=== PATIENT | male | born 1950 | race Caucasian/White ===

== ENCOUNTER 2019-07-03 12:32 | Inpatient (IN) | payer BC, OTHER ==
[2019-07-03] MEDS ORDERED: LACTATED RINGERS SOLUTION 1000 ML INFUS.BAG IV ONE (13:23)
--- NOTE | 2019-07-03 13:55 | EKG ---
Test Reason : Blood Pressure : / mmHG Vent. Rate : 066 BPM Atrial Rate : 066 BPM P-R Int : 162 ms QRS Dur : 098 ms QT Int : 418 ms P-R-T Axes : 033 -19 025 degrees QTc Int : 438 ms NORMAL SINUS RHYTHM MODERATE VOLTAGE CRITERIA FOR LVH, MAY BE NORMAL VARIANT BORDERLINE ECG WHEN COMPARED WITH ECG OF 10-JUL-2010 06:40, NO SIGNIFICANT CHANGE WAS FOUND Confirmed by ADELAIDA LAMAR MD ([id number]) on 07/03/2019 1:55:19 PM Referred By: Confirmed By:ADELAIDA LAMAR MD
--- NOTE | 2019-07-03 15:12 | PDOC ---
History of Present Illness - General Chief Complaint: Blood Pressure Problem Stated Complaint: HYPOTENSION Time Seen by Provider: 07/03/19 13:22 History Source: Patient, EMS, Spouse ( present at bedside.) Exam Limitations: No Limitations - History of Present Illness Initial Comments: HPI: 68 y/o male presenting to [facility] ER complaining of an episode of chills and diaphoresis. EMS reports finding the pt's systolic BP to be in the 60s with bradycardia on scene. Given 500c NS IVFB prior to arrival with marked improvement of BP. Pt reports he took a dose of Naproxen and felt "pinches" all over his skin. Denies observing skin changes. observed her pt was sweating and felt cold to the touch. No syncope or change in mental status. Denies chest pain, SOB, or recent illness. Pt has tolerated Naproxen in the past. No significant outdoor exposure. Has heat in the household. Only complaint at the time of interview is chronic bilateral lower back pain. Denies trauma or midline tenderness. Denies saddle anesthesia, urinary retention , fecal incontinence, numbness or tingling in legs, or difficulty walking. 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 Medical Hx: - HTN - BPH - S/p L inguinal hernia repair Review of Systems: In addition to that documented in the HPI above, the additional ROS was obtained : Constitutional- Denies fevers Head- Denies vision changes or headache ENMT- Denies sore throat CV- Denies chest pain or upper back pain Resp- Denies SOB, coughing, or sneezing GI- Denies abdominal pain, vomiting, or diarrhea - Denies painful urination, hematuria MSK- Denies recent trauma Skin- Denies new rashes Neuro- Denies new numbness or tingling or weakness Endocrine- Denies polyuria Heme- Denies bleeding or bruising Physical Examination: Vital signs and nursing notes reviewed. Constitutional- Well-developed, well-nourished adult male in no acute distress or obvious discomfort. Found semi-fowlers on hospital bed covered by multiple blankets. Answered all questions appropriately and completely. Head- Normocephalic. No obvious external signs of trauma. Eyes- Pupils 3mm and PERRL. EOMI. Sclerae white. Conjunctiva moist and not injected. Ears- Hearing grossly intact. Nose- No nasal discharge. Throat- Oral cavity and pharynx normal. No inflammation, swelling, exudate, or lesions. Moist mucosal membranes. Neck- Supple, trachea is midline. Cardiovascular / Chest- Regular rate and regular rhythm. No murmur, rubs, clicks , or gallops. Peripheral pulses- radial pulses full. Respiratory- Breathing unlabored. Equal chest rise and fall. Clear to auscultation bilaterally. No stridor, no wheezing, no rhonchi. Gastrointestinal- abdomen is soft, non-tender, non-distended. Midline epigastric hernia. Neuro- Alert and oriented x4. Moving all four extremities spontaneously. Sensation to all four extremities intact. Lower extremity: proximal and distal strength 5/5. Plantar flexion and dorsiflexion 5/5. No nuchal rigidity. MSK- diffuse bilateral lower extremity pain. No mid line tenderness. No overlying skin lesions. No obvious step off or other bony deformity. Skin- Warm, dry, and intact. No bruising, rashes, or other lesions. - No R or L CVA tenderness. Psych- Affect- appropriate. Mood- normal. Speech was non-labored, non- pressured. MDM: 68 y/o male presenting with episode of chills and diaphoresis with abnormal vital signs reported by EMS Afebrile. Vitals unremarkable for hypotension or tachycardia. Mildly hypothermic rectally. Physical exam as described above. Mild leukocytosis. No significant electrolyte derangement. EKG unremarkable for ischemic changes. Initial troponin not elevated. Unclear etiology of symptoms. No clear source of infection without symptoms, an unremarkable UA, and an unremarkable CXR. Concern for possible poorly described syncopal episode after repeat interview by ED Attending coupled with reportedly abnormal vitals pre-hospital. Given pt s age and h/o HTN, will admit the pt to telemetry for TIMA. 03 Jul 2019 16:09 PM Page sent for Dr. Walker through office answering service. Awaiting call back. 03 Jul 2019 16:27 PM Telephone discussion with Dr. Walker. Verbally appraised of the pts HPI, ED course, and current plan of management. No additional orders requested. Will admit the pt to telemetry on obs status. Repeat troponin pending at time of admission. Shane Jordan M.D., PGY2 Emergency Medicine Resident Past History - Past Medical History Allergies/Adverse Reactions: Allergies Allergy/AdvReac Type Severity Reaction Status Date / Time acetaminophen [From Percocet] Allergy Verified 07/03/19 12:53 aspirin Allergy Verified 07/03/19 12:53 codeine Allergy Verified 07/03/19 12:53 oxycodone HCl [From Percocet] Allergy Verified 07/03/19 12:53 Home Medications: Ambulatory Orders Tamsulosin HCl [Flomax] 0.4 mg PO DAILY 01/06/16 Losartan Potassium 25 mg PO DAILY 07/03/19 Naproxen 500 mg PO DAILY PRN 07/03/19 COPD: No HTN: Yes Other medical history: chronic back pain - Surgical History Abdominal Surgery: Yes (hernia) - Psycho Social/Smoking Cessation Hx Smoking History: Never smoked Hx Alcohol Use: Yes Drug/Substance Use Hx: No *Physical Exam - Vital Signs Last Vital Signs Temp Pulse Resp BP Pulse Ox 96.3 F L 59 L 20 144/95 100 07/03/19 13:45 07/03/19 13:45 07/03/19 13:45 07/03/19 13:45 07/03/19 13:45 ED Treatment Course - LABORATORY CBC & Chemistry Diagram: 07/03/19 14:36 07/03/19 14:36 - RADIOLOGY Radiology Studies Ordered: Category Date Time Status CHEST X-RAY PORTABLE* [RAD] Stat Radiology 07/03/19 13:23 Completed Discharge - Discharge Information Problems reviewed: Yes Clinical Impression/Diagnosis: Pre-syncope Hypotension, unspecified Qualifiers: Hypotension type: unspecified hypotension type Qualified Code(s): I95.9 - Hypotension, unspecified Leukocytosis Qualifiers: Leukocytosis type: other Qualified Code(s): D72.828 - Other elevated white blood cell count Hypothermia Qualifiers: Encounter type: initial encounter Qualified Code(s): T68.XXXA - Hypothermia, initial encounter Condition: Stable - Admission Yes - Follow up/Referral Referrals: Lev Ohara MD [Primary Care Provider] - - Patient Discharge Instructions - Post Discharge Activity
[2019-07-03 15:13] LABS: BASO % 0.2 % (0-2.0); EOS % 0.5 % (0-4.5); HEMATOCRIT 48.2 % (35.4-49); HEMOGLOBIN 16.2 GM/dL (11.7-16.9); LYMPH % 9.3 % (8-40); MCH 30.3 pg (25.7-33.7); MCHC 33.6 g/dl (32.0-35.9); MEAN CELL VOLUME 90.3 fl (80-96); MEAN PLT VOLUME 11.1 fl (7.5-11.1); MONO % 7.7 % (3.8-10.2); NEUT % 82.3 % (42.8-82.8); PLATELET COUNT 156 K/MM3 (134-434); RBC 5.34 M/mm3 (4.00-5.60); RDW 13.8 % (11.9-15.9); WHITE BLOOD COUNT 14.2 K/mm3 (4.0-10.0)
[2019-07-03 15:19] LABS: EPI CELLS 1.1 /HPF (0-5/HPF); HYALINE CASTS 4 /lpf (0-8); PH,URINE 7.5 (5.0-8.0); URINE APPEARANCE CLEAR; URINE BACTERIA 0.7 /hpf (NEGATIVE); URINE BILIRUBIN NEGATIVE (NEGATIVE); URINE COLOR YELLOW; URINE GLUCOSE (UA) NEGATIVE (NEGATIVE); URINE KETONE NEGATIVE (NEGATIVE); URINE LEUK ESTERASE NEGATIVE (NEGATIVE); URINE NITRITE NEGATIVE (NEGATIVE); URINE PROTEIN 1+ (NEGATIVE); URINE RBC 5 /hpf (0-4); URINE WBC 1 /hpf (0-5)
[2019-07-03 15:26] LABS: INR 0.92 (0.83-1.09); PROTHROMBIN TIME (PATIENT) 10.8 SEC (9.7-13.0)
[2019-07-03 15:29] LABS: ACTIVATED PTT 17.8 SECONDS (25.2-36.5)
[2019-07-03 15:43] LABS: ALBUMIN 4.4 g/dl (3.4-5.0); BILIRUBIN,TOTAL 0.8 mg/dL (0.2-1); BLOOD UREA NITROGEN 16.4 mg/dL (7-18); POTASSIUM 4.1 mmol/L (3.5-5.1); TOT PROT 7.1 g/dl (6.4-8.2)
--- NOTE | 2019-07-03 16:29 | PDOC ---
Documentation entered by Macarena Tello SCRIBE, acting as scribe for Cristino Greenberg MD. Cristino Greenberg MD: This documentation has been prepared by the Omer chase Adrianna, SCRIBE, under my direction and personally reviewed by me in its entirety. I confirm that the documentation accurately reflects all work, treatment, procedures, and medical decision making performed by me. Attending Attestation - Resident Resident Name: Shane Jordan - ED Attending Attestation I have performed the following: I have examined & evaluated the patient, The case was reviewed & discussed with the resident, I agree w/resident's findings & plan, Exceptions are as noted - HPI HPI: The patient is a 68 year old male, with a significant PMH of HTN, BPH, and chronic low back pain (on Naproxen prn), who presents to the ED BIBEMS for evaluation of syncopal episode. at bedside assists in providing history. She notes the patient took naproxen earlier today for his chronic low back pain (has been taking for the past week without any complaints), and shortly after he developed a diffuse "itching" sensation (as if he had a rash, but without any visible signs). Patient went to lie down on the couch, and notes he suddenly passed out and began snoring. Upon evaluation, patient was weak, sweaty , and cool to touch. notes the episode lasted for a few minutes. She called EMS, and upon arrival he was found to be hypotensive (~60s systolic) and bradycardic (in the 50s). He was given 500cc saline, and his BP returned to normal (~140s systolic in the ED). His only complaint in the ED is his baseline bilateral low back pain, and he is hypothermic upon evaluation (~96F). Patient endorses one episode of similar symptoms ~7 years ago after taking codeine, but did not seek medical attention at that time. Denies headache, dizziness, focal weakness/numbness, fever, chills, chest pain, SOB, palpitations, abdominal pain, nausea, vomit, diarrhea, constipation, dysuria, hematuria. Allergies: acetaminophen, aspirin, codeine, oxycodone Surgical History: Abdominal hernia repair Social History: Denies EtOH, tobacco, or illicit drug use PCP: Dr. Ohara - Physicial Exam PE: GENERAL: +Hypothermic. Awake, alert, and fully oriented, in no acute distress HEAD: No signs of trauma EYES: PERRLA, EOMI, sclera anicteric, conjunctiva clear ENT: Oropharynx clear without exudates. Moist mucosa NECK: Normal ROM, supple, no lymphadenopathy, JVD, or masses LUNGS: Breath sounds equal, clear to auscultation bilaterally. No wheezes, and no crackles HEART: Regular rate and rhythm, normal S1 and S2, no murmurs, rubs or gallops ABDOMEN: Soft, nontender, normoactive bowel sounds. No guarding, no rebound. No masses EXTREMITIES: Normal range of motion, no edema. No clubbing or cyanosis. No cords , erythema, or tenderness. 2+ DP and TP pulses in LE. BACK: +Bilateral paraspinal low back tenderness to palpation. No midline spinal tenderness in cervical/thoracic/lumbar region NEUROLOGICAL: Normal speech, cranial nerves intact, negative pronator drift, 5/ 5 strength in all 4 extremities, normal sensation to light touch in all 4 extremities, normal cerebellar exam, normal gait SKIN: Warm, Dry, normal turgor, no rashes or lesions noted. - Medical Decision Making 07/03/19 15:00 68-year-old male presents the emergency department with a syncopal episode, found to be hypothermic. Patient was also hypotensive in the field to 60s systolic and bradycardic to the 50s per EMS. Suspect syncope, possibly vasovagal versus sepsis although he has no infectious sxs. Sepsis work-up initiated, thus far unremarkable. Patient currently asymptomatic. Likely syncopal episode. Plan at this point for telemetry observation admission for cardiac monitoring. 07/03/19 16:[address] Walker, patient accepted for admission. Case discussed in detail with admitting physician including history, physical exam and ancillary studies. Admitting physician has assumed care for the patient, will follow all pending diagnostics and will complete the evaluation and treatment. Heart Score/ECG Review #1 07/03/19 16:28 Twelve-lead EKG was performed and reviewed by me. Normal sinus rhythm, rate 66. Normal axis and intervals. No ST elevations or T wave inversions. ED Treatment Course - LABORATORY CBC & Chemistry Diagram: 07/03/19 14:36 07/03/19 14:36 - ADDITIONAL ORDERS Additional order review: Laboratory Results 07/03/19 07/03/19 07/03/19 14:53 14:36 14:36 PT with INR INR PTT (Actin FS) VBG pH Cancelled POC VBG pCO2 Cancelled POC VBG pO2 Cancelled VBG HCO3 Cancelled VBG O2 Sat (Anibal) Cancelled VBG Base Excess Cancelled Sodium 139 Potassium 4.1 Chloride 106 Carbon Dioxide 27 Anion Gap 6 L BUN 16.4 Creatinine 1.0 Est GFR (CKD-EPI)AfAm 89.86 Est GFR (CKD-EPI)NonAf 77.54 Random Glucose 114 H Calcium 9.0 Total Bilirubin 0.8 AST 24 ALT 29 Alkaline Phosphatase 68 Troponin I Total Protein 7.1 Albumin 4.4 Urine Color Yellow Urine Appearance Clear Urine pH 7.5 Ur Specific [place] 1.017 Urine Protein 1+ H Urine Glucose (UA) Negative Urine Ketones Negative Urine Blood Negative Urine Nitrite Negative Urine Bilirubin Negative Urine Urobilinogen 1.0 Ur Leukocyte Esterase Negative Urine WBC (Auto) 1 Urine RBC (Auto) 5 Urine Casts (Auto) 4 U Epithel Cells (Auto) 1.1 Urine Bacteria (Auto) 0.7 07/03/19 07/03/19 14:36 14:36 PT with INR 10.80 INR 0.92 PTT (Actin FS) 17.8 L VBG pH POC VBG pCO2 POC VBG pO2 VBG HCO3 VBG O2 Sat (Anibal) VBG Base Excess Sodium Potassium Chloride Carbon Dioxide Anion Gap BUN Creatinine Est GFR (CKD-EPI)AfAm Est GFR (CKD-EPI)NonAf Random Glucose Calcium Total Bilirubin AST ALT Alkaline Phosphatase Troponin I < 0.02 Total Protein Albumin Urine Color Urine Appearance Urine pH Ur Specific [place] Urine Protein Urine Glucose (UA) Urine Ketones Urine Blood Urine Nitrite Urine Bilirubin Urine Urobilinogen Ur Leukocyte Esterase Urine WBC (Auto) Urine RBC (Auto) Urine Casts (Auto) U Epithel Cells (Auto) Urine Bacteria (Auto) 07/03/19 14:36 RBC 5.34 MCV 90.3 MCHC 33.6 RDW 13.8 MPV 11.1 Neutrophils % 82.3 Lymphocytes % 9.3 Monocytes % 7.7 Eosinophils % 0.5 Basophils % 0.2 - RADIOLOGY Radiograph Interpretation: EXAM#: TYPE/EXAM: RESULT: [id number] RAD/CHEST X-RAY PORTABLE* Chest: Sepsis Impression: No acute pathology. No significant change since 07/10/2010. Reported By: Tapan Garza MD 07/03/19 14:33 - Medications Given in the ED: ED Medications Discontinued Medications Generic Name Dose Route Start Last Admin Trade Name Freq PRN Reason Stop Dose Admin Lactated Ringer's 1,000 ml 07/03/19 13:23 07/03/19 15:08 Lactated Ringers Solution IV 07/03/19 13:24 1,000 ml ONCE ONE Administration
[2019-07-03 21:31] VITALS: BMI 28.8
[2019-07-04 07:00] LABS: BASO % 0.3 % (0-2.0); EOS % 1.5 % (0-4.5); HEMATOCRIT 41.4 % (35.4-49); HEMOGLOBIN 14.4 GM/dL (11.7-16.9); LYMPH % 13.1 % (8-40); MCH 30.8 pg (25.7-33.7); MCHC 34.8 g/dl (32.0-35.9); MEAN CELL VOLUME 88.5 fl (80-96); MEAN PLT VOLUME 10.6 fl (7.5-11.1); MONO % 6.4 % (3.8-10.2); NEUT % 78.7 % (42.8-82.8); PLATELET COUNT 150 K/MM3 (134-434); RBC 4.68 M/mm3 (4.00-5.60); RDW 13.9 % (11.9-15.9); WHITE BLOOD COUNT 10.3 K/mm3 (4.0-10.0)
[2019-07-04 07:46] LABS: ALBUMIN 3.6 g/dl (3.4-5.0); ALK PHOS 56 U/L (45-117); ANION GAP 5 MMOL/L (8-16); BILIRUBIN,TOTAL 1.2 mg/dL (0.2-1); BLOOD UREA NITROGEN 14.6 mg/dL (7-18); CALCIUM 8.9 mg/dL (8.5-10.1); CHLORIDE 108 mmol/L (98-107); CO2 27 mmol/L (21-32); CREATININE 0.9 mg/dL (0.55-1.3); GLUCOSE,RANDOM 88 mg/dL (74-106); POTASSIUM 3.9 mmol/L (3.5-5.1); SGOT/AST 18 U/L (15-37); SGPT/ALT 23 U/L (13-61); SODIUM 141 mmol/L (136-145); TOT PROT 6.1 g/dl (6.4-8.2)
--- NOTE | 2019-07-04 09:09 | CON.CARD ---
Consult Consult Specialty:: cardio - History of Present Illness Chief Complaint: syncope History of Present Illness: 68 year old male here with loss of consciousness. witnessed events, provided account to ER: patient took naproxen earlier for his chronic low back pain (has been taking for the past week without any complaints), and shortly after he developed a diffuse "itching" sensation (as if he had a rash, but without any visible signs) . he lay on the couch, and notes he suddenly passed out and began snoring. he was noted to be weak, sweaty, and cool to touch, persisting for a few minutes in 's estimation. EMS called: upon arrival, pt reportedly hypotensive (~60s systolic) and bradycardic (in the 50s). He was given 500cc saline, and his BP returned to normal (~140s systolic in the ED). Patient endorses one episode of similar symptoms ~7 years ago after taking codeine, but did not seek medical attention at that time. history provided to me today by pt (in [place]): felt his usual back pain yest am not particularly severe. ate breakfast (normal amt) and coffee at 11:30 am and took his usual NSAID. shortly thereafter the above sx's began. he admits to intense heat/flushing sensation in body as well, and beginning of dizzy/lightheaded sx just prior to loss of consciousness. denies palp, cp BP elevated, sats normal, no signif bradycardia. mild leukocytosis. bun/creat normal, lytes fine. lactate normal. trop neg x 3. TSH normal PMH: HTN, BPH, and chronic low back pain (on Naproxen prn) - Alcohol/Substance Use Hx Alcohol Use: Yes - Smoking History Smoking history: Never smoked Home Medications - Allergies Allergies/Adverse Reactions: Allergies Allergy/AdvReac Type Severity Reaction Status Date / Time acetaminophen [From Percocet] Allergy Verified 07/03/19 12:53 aspirin Allergy Verified 07/03/19 12:53 codeine Allergy Verified 07/03/19 12:53 ibuprofen [From Advil] Allergy Verified 07/03/19 21:32 oxycodone HCl [From Percocet] Allergy Verified 07/03/19 12:53 - Home Medications Home Medications: Ambulatory Orders Tamsulosin HCl [Flomax] 0.4 mg PO DAILY 01/06/16 Losartan Potassium 25 mg PO DAILY 07/03/19 Naproxen 500 mg PO DAILY PRN 07/03/19 Family Medical History Family History: Denies (no known cmp) Review of Systems - Review of Systems Constitutional: denies: Chills, Fever Eyes: denies: Eye Pain HENT: denies: Nasal Congestion Neck: denies: Stiffness Cardiovascular: denies: Palpitations Respiratory: denies: Orthopnea, PND Gastrointestinal: denies: Diarrhea, Rectal Bleeding Genitourinary: denies: Burning, Hematuria Musculoskeletal: denies: Muscle Pain Integumentary: denies: Rash Neurological: denies: Numbness, Seizure Endocrine: denies: Excessive Sweating Hematology/Lymphatic: denies: Excessive Bleeding Vital Signs: Vital Signs Temperature 97.7 F 07/04/19 06:00 Pulse Rate 73 07/04/19 06:00 Respiratory Rate 18 07/04/19 06:00 Blood Pressure 155/94 07/04/19 06:00 O2 Sat by Pulse Oximetry (%) 98 07/03/19 21:00 Constitutional: Yes: Well Nourished, No Distress Eyes: No: Sclera Icterus HENT: No: Nasal Congestion Neck: No: Decreased ROM Respiratory: Yes: CTA Bilaterally. No: Accessory Muscle Use, Rales, Wheezes Gastrointestinal: Yes: Normal Bowel Sounds. No: Distention, Hepatomegaly, Palpable Mass, Tenderness Cardiovascular: Yes: Regular Rate and Rhythm JVD: No Carotid Bruit: No PMI: Non-Displaced Heart Sounds: Yes: S1, S2. No: Gallop Murmur: No: Systolic Murmur, Diastolic Murmur Musculoskeletal: Yes: Other (No kyphosis) Extremities: No: Cool, Cyanosis Edema: No Peripheral Pulses: 2+ Left Carotid, 2+ Right Carotid, 2+ Left Doralis Pedis, 2+ Right Dorsalis Pedis Integumentary: No: Jaundice Neurological: Yes: Alert, Oriented (x3) Psychiatric: No: Agitated - Other Data Labs, Other Data: CBC, BMP 07/04/19 05:55 07/04/19 05:55 INR, PTT INR 0.92 (0.83-1.09) 07/03/19 14:36 Troponin, BNP 07/03/19 07/03/19 07/03/19 14:36 17:35 22:53 Troponin I < 0.02 < 0.02 < 0.02 Troponin, BNP 07/03/19 07/03/19 07/03/19 14:36 17:35 22:53 Troponin I < 0.02 < 0.02 < 0.02 Assessment/Plan CXR: clear lungs/pleura, no change vs prior study ECG: NSR, normal axis/intervals. ? LVH. no path q's, no ST-T ab tele: SR syncope: -hypotension >> bradycardia (reportedly HR 50s) at time of EMS evaluation. hypothermic in ER without s/sx of infection thus far (cultures pending) -occurred shortly after taking NSAID which he has tolerated for long time, associated with intense pruritic feeling (no rash)--? red reddy. allergy seems less likely, will defer allergic w/u to PMD -? vasovagal episode triggered by post-prandial state (prodromal sx of heat/ flushing is c/w this) -r/o arrhythmia--tele monitoring while here (thus far benign) would rec prolonged holter as outpt if findings unremarkable here -echo for risk stratification -no signs myocardial ischemia HTN: -hypertensive here, will resume home regimen and observe
[2019-07-04] MEDS: TAMSULOSIN HCL 0.4 MG CAP PO SCH (09:11)
[2019-07-04] MEDS: HEPARIN NA (PORCINE) 5,000 UNITS/ML 1ML VIAL SQ SCH ×2 (09:11→22:00)
[2019-07-04] MEDS ORDERED: LOSARTAN POTASSIUM 25 MG TABLET PO SCH (10:00)
--- NOTE | 2019-07-04 12:56 | HP ---
Admitting History and Physical - Admission History of Present Illness: Pt is a 68 y/o male w/ PMH significant for HTN, BOH and chronic lower back pain. Pt was brought to the ER by EMS who found pt to be hypotensive(SBP 60's), bradycardiac and hypothermic. As per pt's patient took naproxen earlier for his chronic low back pain (has been taking for the past week without any complaints), and shortly after he developed a diffuse "itching" sensation (as if he had a rash, but without any visible signs). He than layed on the couch, and notes he suddenly passed out and began snoring and he was noted to be weak, sweaty, and cool to touch, persisting for a few minutes in 's estimation. - Past Medical History Cardiovascular: Yes: HTN Renal/: Yes: BPH - Smoking History Smoking history: Never smoked - Alcohol/Substance Use Hx Alcohol Use: Yes Home Medications - Allergies Allergies/Adverse Reactions: Allergies Allergy/AdvReac Type Severity Reaction Status Date / Time acetaminophen [From Percocet] Allergy Verified 07/03/19 12:53 aspirin Allergy Verified 07/03/19 12:53 codeine Allergy Verified 07/03/19 12:53 ibuprofen [From Advil] Allergy Verified 07/03/19 21:32 oxycodone HCl [From Percocet] Allergy Verified 07/03/19 12:53 - Home Medications Home Medications: Ambulatory Orders Tamsulosin HCl [Flomax] 0.4 mg PO DAILY 01/06/16 Losartan Potassium 25 mg PO DAILY 07/03/19 Naproxen 500 mg PO DAILY PRN 07/03/19 Family Medical History Family History: Unremarkable Review of Systems - Review of Systems Constitutional: reports: Diaphoresis, Weakness Eyes: reports: No Symptoms HENT: reports: No Symptoms Neck: reports: No Symptoms Respiratory: reports: No Symptoms Gastrointestinal: reports: No Symptoms Genitourinary: reports: No Symptoms Physical Examination Vital Signs: Vital Signs Temperature 98.2 F 07/04/19 09:13 Pulse Rate 89 07/04/19 09:13 Respiratory Rate 18 07/04/19 09:13 Blood Pressure 162/96 07/04/19 09:13 O2 Sat by Pulse Oximetry (%) 99 07/04/19 09:00 Constitutional: Yes: No Distress Eyes: Yes: WNL HENT: Yes: WNL Neck: Yes: WNL, Supple Cardiovascular: Yes: WNL, Regular Rate and Rhythm Respiratory: Yes: WNL, Regular, CTA Bilaterally Gastrointestinal: Yes: WNL, Normal Bowel Sounds, Soft Musculoskeletal: Yes: WNL Extremities: Yes: WNL Edema: No Neurological: Yes: WNL, Alert ...Motor Strength: WNL Labs: CBC, BMP 07/04/19 05:55 07/04/19 05:55 Problem List - Problems (1) Pre-syncope Assessment/Plan: Serial cpk/troponin have been negative Cardio consult noted Check echo Probable dc planning if echo negative Holter monitor as outpt Code(s): R55 - SYNCOPE AND COLLAPSE (2) HTN (hypertension) Assessment/Plan: Cont losartan Code(s): I10 - ESSENTIAL (PRIMARY) HYPERTENSION (3) Leukocytosis Assessment/Plan: WBC now normal Pt has been off antibxs Cont to monitor BC/urine culture remain negative Code(s): D72.829 - ELEVATED WHITE BLOOD CELL COUNT, UNSPECIFIED Qualifiers: Leukocytosis type: other Qualified Code(s): D72.828 - Other elevated white blood cell count (4) Hypotension, unspecified Assessment/Plan: Resolved Code(s): I95.9 - HYPOTENSION, UNSPECIFIED Qualifiers: Hypotension type: unspecified hypotension type Qualified Code(s): I95.9 - Hypotension, unspecified (5) Hypothermia Assessment/Plan: Resolved Code(s): T68.XXXA - HYPOTHERMIA, INITIAL ENCOUNTER Qualifiers: Encounter type: initial encounter Qualified Code(s): T68.XXXA - Hypothermia , initial encounter
--- NOTE | 2019-07-04 15:08 | CON.ID ---
Consult - History of Present Illness History of Present Illness: 68 y.o. male with PMH of HTN, BPH, and chronic LBP (states he had a horse- riding accident 10 yrs ago) was brought in by EMS after his reported brief episode of ? LOC. Had stated that patient had recently re-started Naprosyn for his back pain and prior to arrival c/o generalized "pinching" sensation followed by diaphoresis, chills and feeling clammy prior to syncopal episode. No rash was noted. Pt states been tolerating Naprosyn prior to this. His called EMS and pt was reported to be found hypotensive, hypothermic, and bradycardic which resolved after IV fluids. In the ER he was noted to have an elevated wbc (14K) and given antibiotics for possible infectious etiology. Currently pt is alert, denies itching and has no c/o back pain, able to ambulate without difficulty. He denies any recent H/A, SOB/cough, CP, abd pain/n /v/d, urinary f/u/d. States he feels well. is at bedside. - History Source History Provided By: Patient, Medical Record Limitations to Obtaining History: No Limitations - Past Medical History Cardio/Vascular: Yes: HTN Renal/: Yes: BPH Musculoskeletal: Yes: Chronic low back pain - Alcohol/Substance Use Hx Alcohol Use: Yes - Smoking History Smoking history: Never smoked - Social History History of Recent Travel: No Home Medications - Allergies Allergies/Adverse Reactions: Allergies Allergy/AdvReac Type Severity Reaction Status Date / Time acetaminophen [From Percocet] Allergy Verified 07/03/19 12:53 aspirin Allergy Verified 07/03/19 12:53 codeine Allergy Verified 07/03/19 12:53 ibuprofen [From Advil] Allergy Verified 07/03/19 21:32 oxycodone HCl [From Percocet] Allergy Verified 07/03/19 12:53 - Home Medications Home Medications: Ambulatory Orders Tamsulosin HCl [Flomax] 0.4 mg PO DAILY 01/06/16 Losartan Potassium 25 mg PO DAILY 07/03/19 Naproxen 500 mg PO DAILY PRN 07/03/19 Review of Systems - Review of Systems Constitutional: reports: No Symptoms. denies: Chills, Diaphoresis, Fever, Lethargy, Loss of Appetite, Malaise, Night Sweats, Unintentional Wgt. Loss, Weakness, Other Eyes: reports: No Symptoms. denies: Blind Spots, Blurred Vision, Double Vision , Eye Pain, Floaters, Photophobia, Recent Change in Vision, Other HENT: reports: Other (mild rhinorrhea) Neck: reports: No Symptoms. denies: Decreased ROM, Lumps, Pain on Movement, Stiffness, Swollen Glands, Tenderness, Other Cardiovascular: reports: No Symptoms. denies: Chest Pain, Edema, Palpitations, Shortness of Breath, Other Respiratory: reports: No Symptoms. denies: Cough, Exercise Intolerance, Hemoptysis, Orthopnea, PND, Snoring, SOB, SOB on Exertion, Wheezing, Other Gastrointestinal: reports: No Symptoms. denies: Abdominal Pain, Bloating, Constipation, Diarrhea, Dysphagia, Indigestion, Melena, Nausea, Rectal Bleeding , Vomiting, Vomiting Blood, Other Genitourinary: reports: No Symptoms. denies: Burning, Discharge, Dysuria, Flank Pain, Frequency, Hematuria, Incontinence, Lesions, Menses, Pain, Testicular Mass, Testicular Pain, Testicular Swelling, Urgency, Vaginal Bleeding , Other Musculoskeletal: reports: No Symptoms. denies: Back Pain, Crepitus, Decreased ROM, Extremity Pain, Joint Pain, Joint Swelling, Muscle Pain, Muscle Cramps, Muscle Weakness, Other Integumentary: reports: No Symptoms. denies: Blister, Bruising, Change in Color , Eczema, Erythema, Incision, Lesions, Lump, Pallor, Pruritis, Rash, Wound, Other Neurological: reports: No Symptoms. denies: Change in LOC, Change in Speech, Confusion, Dizziness, Headache, Incoordination, Numbness, Parasthesia, Pre- Existing Deficit, Seizure, Syncope, Tremors, Unsteady Gait, Weakness, Other Endocrine: reports: No Symptoms. denies: Excessive Sweating, Flushing, Increased Hunger, Increased Thirst, Intolerance to Cold, Intolerance to Heat, Unexplained Weight Gain, Unexplained Weight Loss, Other Hematology/Lymphatic: reports: No Symptoms. denies: Easily Bruised, Excessive Bleeding, Swollen Glands, Other Psychiatric: reports: No Symptoms. denies: Altered Sleep Pattern, Anxiety, Depression, Hallucinations, Panic, Paranoia, Suicidal, Other Physical Exam Vital Signs: Vital Signs Temperature 98.2 F 07/04/19 09:13 Pulse Rate 89 07/04/19 09:13 Respiratory Rate 18 07/04/19 09:13 Blood Pressure 162/96 07/04/19 09:13 O2 Sat by Pulse Oximetry (%) 99 07/04/19 09:00 Constitutional: Yes: Well Nourished, No Distress, Calm Eyes: Yes: Conjunctiva Clear, EOM Intact HENT: Yes: Atraumatic Neck: Yes: Supple Cardiovascular: Yes: Regular Rate and Rhythm Respiratory: Yes: CTA Bilaterally Gastrointestinal: Yes: Normal Bowel Sounds, Soft Renal/: Yes: WNL Musculoskeletal: Yes: WNL Extremities: Yes: WNL Edema: No Peripheral Pulses WNL: Yes Integumentary: Yes: WNL Neurological: Yes: Alert, Oriented Labs: CBC, BMP 07/04/19 05:55 07/04/19 05:55 Laboratory Tests 07/03/19 07/03/19 07/03/19 14:36 14:36 14:36 WBC 14.2 H RBC 5.34 Hgb 16.2 Hct 48.2 MCV 90.3 MCH 30.3 MCHC 33.6 RDW 13.8 Plt Count 156 MPV 11.1 Absolute Neuts (auto) 11.7 H Neutrophils % 82.3 Lymphocytes % 9.3 Monocytes % 7.7 Eosinophils % 0.5 Basophils % 0.2 Nucleated RBC % 0 PT with INR 10.80 INR 0.92 PTT (Actin FS) 17.8 L VBG pH POC VBG pCO2 POC VBG pO2 VBG HCO3 VBG O2 Sat (Anibal) VBG Base Excess Sodium Potassium Chloride Carbon Dioxide Anion Gap BUN Creatinine Est GFR (CKD-EPI)AfAm Est GFR (CKD-EPI)NonAf Random Glucose Lactic Acid Calcium Total Bilirubin AST ALT Alkaline Phosphatase Creatine Kinase Creatine Kinase Index CK-MB (CK-2) Troponin I < 0.02 Total Protein Albumin TSH Urine Color Urine Appearance Urine pH Ur Specific [place] Urine Protein Urine Glucose (UA) Urine Ketones Urine Blood Urine Nitrite Urine Bilirubin Urine Urobilinogen Ur Leukocyte Esterase Urine WBC (Auto) Urine RBC (Auto) Urine Casts (Auto) U Epithel Cells (Auto) Urine Bacteria (Auto) 07/03/19 07/03/19 07/03/19 14:36 14:36 14:39 WBC RBC Hgb Hct MCV MCH MCHC RDW Plt Count MPV Absolute Neuts (auto) Neutrophils % Lymphocytes % Monocytes % Eosinophils % Basophils % Nucleated RBC % PT with INR INR PTT (Actin FS) VBG pH Cancelled POC VBG pCO2 Cancelled POC VBG pO2 Cancelled VBG HCO3 Cancelled VBG O2 Sat (Anibal) Cancelled VBG Base Excess Cancelled Sodium 139 Potassium 4.1 Chloride 106 Carbon Dioxide 27 Anion Gap 6 L BUN 16.4 Creatinine 1.0 Est GFR (CKD-EPI)AfAm 89.86 Est GFR (CKD-EPI)NonAf 77.54 Random Glucose 114 H Lactic Acid Cancelled Calcium 9.0 Total Bilirubin 0.8 AST 24 ALT 29 Alkaline Phosphatase 68 Creatine Kinase Creatine Kinase Index CK-MB (CK-2) Troponin I Total Protein 7.1 Albumin 4.4 TSH Urine Color Urine Appearance Urine pH Ur Specific [place] Urine Protein Urine Glucose (UA) Urine Ketones Urine Blood Urine Nitrite Urine Bilirubin Urine Urobilinogen Ur Leukocyte Esterase Urine WBC (Auto) Urine RBC (Auto) Urine Casts (Auto) U Epithel Cells (Auto) Urine Bacteria (Auto) 07/03/19 07/03/19 07/03/19 14:53 17:35 17:35 WBC RBC Hgb Hct MCV MCH MCHC RDW Plt Count MPV Absolute Neuts (auto) Neutrophils % Lymphocytes % Monocytes % Eosinophils % Basophils % Nucleated RBC % PT with INR INR PTT (Actin FS) VBG pH POC VBG pCO2 POC VBG pO2 VBG HCO3 VBG O2 Sat (Anibal) VBG Base Excess Sodium Potassium Chloride Carbon Dioxide Anion Gap BUN Creatinine Est GFR (CKD-EPI)AfAm Est GFR (CKD-EPI)NonAf Random Glucose Lactic Acid 1.5 Calcium Total Bilirubin AST ALT Alkaline Phosphatase Creatine Kinase Creatine Kinase Index CK-MB (CK-2) Troponin I < 0.02 Total Protein Albumin TSH Urine Color Yellow Urine Appearance Clear Urine pH 7.5 Ur Specific [place] 1.017 Urine Protein 1+ H Urine Glucose (UA) Negative Urine Ketones Negative Urine Blood Negative Urine Nitrite Negative Urine Bilirubin Negative Urine Urobilinogen 1.0 Ur Leukocyte Esterase Negative Urine WBC (Auto) 1 Urine RBC (Auto) 5 Urine Casts (Auto) 4 U Epithel Cells (Auto) 1.1 Urine Bacteria (Auto) 0.7 07/03/19 07/04/19 07/04/19 22:53 05:55 05:55 WBC 10.3 H RBC 4.68 Hgb 14.4 Hct 41.4 MCV 88.5 MCH 30.8 MCHC 34.8 RDW 13.9 Plt Count 150 MPV 10.6 Absolute Neuts (auto) 8.1 H Neutrophils % 78.7 Lymphocytes % 13.1 D Monocytes % 6.4 Eosinophils % 1.5 D Basophils % 0.3 Nucleated RBC % 0 PT with INR INR PTT (Actin FS) VBG pH POC VBG pCO2 POC VBG pO2 VBG HCO3 VBG O2 Sat (Anibal) VBG Base Excess Sodium 141 Potassium 3.9 Chloride 108 H Carbon Dioxide 27 Anion Gap 5 L BUN 14.6 Creatinine 0.9 Est GFR (CKD-EPI)AfAm 102.07 Est GFR (CKD-EPI)NonAf 88.07 Random Glucose 88 Lactic Acid Calcium 8.9 Total Bilirubin 1.2 H AST 18 ALT 23 Alkaline Phosphatase 56 Creatine Kinase 188 Creatine Kinase Index 1.2 CK-MB (CK-2) 2.4 Troponin I < 0.02 Total Protein 6.1 L Albumin 3.6 TSH 0.67 Urine Color Urine Appearance Urine pH Ur Specific [place] Urine Protein Urine Glucose (UA) Urine Ketones Urine Blood Urine Nitrite Urine Bilirubin Urine Urobilinogen Ur Leukocyte Esterase Urine WBC (Auto) Urine RBC (Auto) Urine Casts (Auto) U Epithel Cells (Auto) Urine Bacteria (Auto) Microbiology 07/03/19 14:39 Blood - Peripheral Venous Blood Culture - Preliminary NO GROWTH OBTAINED AFTER 24 HOURS, INCUBATION TO CONTINUE FOR 4 DAYS. 07/03/19 14:39 Blood - Peripheral Venous Blood Culture - Preliminary NO GROWTH OBTAINED AFTER 24 HOURS, INCUBATION TO CONTINUE FOR 4 DAYS. 07/03/19 14:53 Urine - Urine Clean Catch Urine Culture - Final NO GROWTH OBTAINED Imaging - Results Chest X-ray: Report Reviewed Problem List - Problems (1) Hypotension, unspecified Code(s): I95.9 - HYPOTENSION, UNSPECIFIED Qualifiers: Hypotension type: unspecified hypotension type Qualified Code(s): I95.9 - Hypotension, unspecified (2) Hypothermia Code(s): T68.XXXA - HYPOTHERMIA, INITIAL ENCOUNTER Qualifiers: Encounter type: initial encounter Qualified Code(s): T68.XXXA - Hypothermia , initial encounter (3) Leukocytosis Code(s): D72.829 - ELEVATED WHITE BLOOD CELL COUNT, UNSPECIFIED Qualifiers: Leukocytosis type: other Qualified Code(s): D72.828 - Other elevated white blood cell count (4) Pre-syncope Code(s): R55 - SYNCOPE AND COLLAPSE Assessment/Plan 68 y.o. male with PMH of HTN, BPH, and chronic LBP (states he had a horse- riding accident 10 yrs ago) was brought in by EMS after his reported pt c/ o generalized itching and brief episode of ? LOC and found to be hypotensive, bradycardic and hypothermic with mild leukocytosis. Symptoms reportedly after taking Naprosyn Leukocytosis ? syncope vs pre-syncope Hypotension Hypothermia -- Pt is alert, afebrile, vitals stable, without any specific complaints -- Routine cultures neg, CXR neg -- lactic acid normal, wbc normalized -- vitals stable -- Pt without an obvious infectious source. Continue monitor wbc/vitals while off antibiotics for now Will follow up Thank you
--- NOTE | 2019-07-05 09:25 | PN ---
Progress Note, Physician Chief Complaint: syncope History of Present Illness: ID consult appreciated--no signs infection/sepsis pt denies dizziness, including ambulating in halls no cp, sob, palp - Current Medication List Current Medications: Active Medications Heparin Sodium (Porcine) (Heparin -) 5,000 unit SQ BID [facility] Last Admin: 07/04/19 22:00 Dose: 5,000 unit Losartan Potassium (Cozaar -) 25 mg PO DAILY [facility] Last Admin: 07/04/19 09:11 Dose: 25 mg Tamsulosin HCl (Flomax -) 0.4 mg PO DAILY@0830 [facility] Last Admin: 07/04/19 09:11 Dose: 0.4 mg - Objective Vital Signs: Vital Signs Temperature 98.0 F 07/05/19 02:00 Pulse Rate 74 07/05/19 02:00 Respiratory Rate 18 07/05/19 02:00 Blood Pressure 147/89 07/05/19 02:00 O2 Sat by Pulse Oximetry (%) 99 07/04/19 21:00 Constitutional: Yes: Well Nourished, No Distress, Calm Cardiovascular: Yes: Regular Rate and Rhythm, S1, S2. No: Gallop, Murmur Respiratory: Yes: Regular, CTA Bilaterally. No: Accessory Muscle Use, Rales, Wheezes Extremities: No: Cold Edema: No Neurological: Yes: Alert, Oriented Psychiatric: No: Agitated Labs: CBC, BMP 07/04/19 05:55 07/04/19 05:55 INR, PTT INR 0.92 (0.83-1.09) 07/03/19 14:36 Assessment/Plan CXR: clear lungs/pleura, no change vs prior study ECG: NSR, normal axis/intervals. ? LVH. no path q's, no ST-T ab tele: SR syncope: -hypotension >> bradycardia (reportedly HR 50s) at time of EMS evaluation. hypothermic in ER without s/sx of infection thus far (cultures pending) -occurred shortly after taking NSAID which he has tolerated for long time, associated with intense pruritic feeling (no rash)--? red reddy. allergy seems less likely, will defer allergic w/u to PMD -? vasovagal episode triggered by post-prandial state (prodromal sx of heat/ flushing is c/w this) -r/o arrhythmia: tele WNL here. rec prolonged holter as outpt -echo for risk stratification -no signs myocardial ischemia HTN: -bp mildly elevated -incr losartan to 50 qd if echo is unremarkable, pt is ok for d/c from cv p.o.v.
[2019-07-05] MEDS: TAMSULOSIN HCL 0.4 MG CAP PO SCH (10:23)
[2019-07-05] MEDS: HEPARIN NA (PORCINE) 5,000 UNITS/ML 1ML VIAL SQ SCH ×2 (10:24→22:59)
[2019-07-05] MEDS: LOSARTAN POTASSIUM 50 MG TABLET (FP) PO SCH ×2 (10:24)
--- NOTE | 2019-07-05 15:27 | PN ---
Progress Note, Physician - Current Medication List Current Medications: Active Medications Heparin Sodium (Porcine) (Heparin -) 5,[address] [facility] Last Admin: 07/05/19 10:24 Dose: 5,000 unit Losartan Potassium (Cozaar -) [address] [facility] Last Admin: 07/05/19 10:24 Dose: 50 mg Tamsulosin HCl (Flomax -) 0.4 mg PO DAILY@0830 [facility] Last Admin: 07/05/19 10:23 Dose: 0.4 mg - Objective Vital Signs: Vital Signs Temperature 98.0 F 07/05/19 02:00 Pulse Rate 74 07/05/19 02:00 Respiratory Rate 18 07/05/19 02:00 Blood Pressure 174/95 H 07/05/19 14:07 O2 Sat by Pulse Oximetry (%) 99 07/04/19 21:00 Labs: CBC, BMP 07/04/19 05:55 07/04/19 05:55 INR, PTT INR 0.92 (0.83-1.09) 07/03/19 14:36
--- NOTE | 2019-07-05 17:06 | ECHO ---
Name: JANETT URIAS Exam:Adult Echocardiogram Study Date: 07/05/2019 09:29 AM Age: 68 yrs Reason For Study: hypertensive bradycardia Height: 73 in Weight: 218 lb BSA: 2.2 m2 MMode/2D Measurements & Calculations IVSd: 0.92 cm Ao root diam: 3.9 cm LVIDd: 5.1 cm LA dimension: 3.7 cm LVIDs: 2.9 cm ACS: 2.4 cm LVPWd: 0.81 cm IVSs: 1.3 cm LVPWs: 1.3 cm EDV(Teich): 125.7 ml ESV(Teich): 33.1 ml Doppler Measurements & Calculations MV E max ángel: 61.5 cm/sec Ao V2 max: 128.0 cm/sec MV A max ángel: 69.1 cm/sec Ao max P.6 mmHg MV E/A: 0.89 Ao V2 mean: 94.3 cm/sec Ao mean P.0 mmHg Ao V2 VTI: 26.4 cm TR max ángel: 236.4 cm/sec Med Peak E' Ángel: 8.1 cm/sec TR max P.4 mmHg Med E/e': 7.7 Lat Peak E' Ángel: 7.6 cm/sec Lat E/e': 8.3 Procedure A complete two-dimensional transthoracic echocardiogram was performed (2D, M-mode, Doppler and color flow Doppler). Left Ventricle The left ventricle is normal in size. Left ventricular systolic function is normal. Ejection Fraction = 60- 65%. No regional wall motion abnormalities noted. Right Ventricle The right ventricle is normal size. The right ventricular systolic function is normal. Atria The left atrial size is normal. Right atrial size is normal. Mitral Valve The mitral valve is normal in structure and function. There is mild mitral regurgitation. Tricuspid Valve The tricuspid valve is normal in structure and function. There is mild tricuspid regurgitation. Right ventricular systolic pressure is normal. Aortic Valve There is mild aortic sclerosis.;. Mild aortic regurgitation. Pulmonic Valve The pulmonic valve is not well visualized. Great Vessels Mild aortic root dilatation. Pericardium/Pleura There is no pericardial effusion. Interpretation Summary The left ventricle is normal in size. Left ventricular systolic function is normal. No regional wall motion abnormalities noted. Ejection Fraction = 60-65%. The right ventricular systolic function is normal. The left atrial size is normal. Right atrial size is normal. There is mild mitral regurgitation. There is mild tricuspid regurgitation. Right ventricular systolic pressure is normal. There is mild aortic sclerosis. Mild aortic regurgitation. Mild aortic root dilatation. There is no pericardial effusion. Jayy Johnson MD 07/05/2019 05:05 PM
[2019-07-06 06:34] VITALS: BP 155/103; PULSE 83; TEMP 98.1
--- NOTE | 2019-07-06 09:21 | DS ---
Physical Exam: SUBJECTIVE: Patient seen and examined OBJECTIVE: Pt is a 68 y/o male w/ PMH significant for HTN, BOH and chronic lower back pain. Pt was brought to the ER by EMS who found pt to be hypotensive(SBP 60's), bradycardiac and hypothermic. As per pt's patient took naproxen earlier for his chronic low back pain (has been taking for the past week without any complaints), and shortly after he developed a diffuse "itching" sensation (as if he had a rash, but without any visible signs). He than layed on the couch, and notes he suddenly passed out and began snoring and he was noted to be weak, sweaty, and cool to touch, persisting for a few minutes in 's estimation. Vital Signs Period Temp Pulse Resp BP Sys/Sewell Pulse Ox Last 24 Hr 97.9 F-98.2 F 69-83 18-18 141-174/77-103 97 PHYSICAL EXAM GENERAL: The patient is awake, alert, and fully oriented, in no acute distress. HEAD: Normal with no signs of trauma. EYES: PERRL, extraocular movements intact, sclera anicteric, conjunctiva clear. ENT: Ears normal, nares patent, oropharynx clear without exudates, moist mucous membranes. NECK: Trachea midline, full range of motion, supple. LUNGS: Breath sounds equal, clear to auscultation bilaterally, no wheezes, no crackles, no accessory muscle use. HEART: Regular rate and rhythm, S1, S2 without murmur, rub or gallop. ABDOMEN: Soft, nontender, nondistended, normoactive bowel sounds, no guarding, no rebound, no hepatosplenomegaly, no masses. EXTREMITIES: 2+ pulses, warm, well-perfused, no edema. NEUROLOGICAL: Cranial nerves II through XII grossly intact. Normal speech, gait not observed. PSYCH: Normal mood, normal affect. SKIN: Warm, dry, normal turgor, no rashes or lesions noted. LABS HOSPITAL COURSE: Date of Admission:07/03/19 Date of Discharge: 07/06/19 Minutes to complete discharge: 45 Discharge Summary Problems reviewed: Yes Reason For Visit: HYPOTHERMIA,PRE-SYNCOPE,HYPOTENSION Current Active Problems HTN (hypertension) (Acute) Hypotension, unspecified (Acute) Hypothermia (Acute) Leukocytosis (Acute) Pre-syncope (Acute) Pre-syncope (Acute) Condition: Stable - Instructions Referrals: Lev Ohara MD [Primary Care Provider] - Disposition: HOME - Home Medications Comprehensive Discharge Medication List: Ambulatory Orders Tamsulosin HCl [Flomax -] 0.4 mg PO DAILY 01/06/16 Losartan Potassium 25 mg PO DAILY 07/03/19 Losartan Potassium 50 mg PO DAILY #90 tablet 07/06/19 Losartan Potassium [Cozaar -] 50 mg PO DAILY #90 tablet 07/06/19 Problem List - Problems (1) Pre-syncope Assessment/Plan: resolved. steady gait, no dizziness, asymptomatic Serial cpk/troponin have been negative Cardio consult noted, per cardiology d/c if echo negative Holter monitor as outpt Code(s): R55 - SYNCOPE AND COLLAPSE (2) HTN (hypertension) Assessment/Plan: on losartan Code(s): I10 - ESSENTIAL (PRIMARY) HYPERTENSION (3) Hypotension, unspecified Assessment/Plan: resolved Code(s): I95.9 - HYPOTENSION, UNSPECIFIED Qualifiers: Hypotension type: unspecified hypotension type Qualified Code(s): I95.9 - Hypotension, unspecified (4) Hypothermia Assessment/Plan: resolved Code(s): T68.XXXA - HYPOTHERMIA, INITIAL ENCOUNTER Qualifiers: Encounter type: initial encounter Qualified Code(s): T68.XXXA - Hypothermia , initial encounter (5) Leukocytosis Assessment/Plan: resolved Code(s): D72.829 - ELEVATED WHITE BLOOD CELL COUNT, UNSPECIFIED Qualifiers: Leukocytosis type: other Qualified Code(s): D72.828 - Other elevated white blood cell count This patient is new to me today: Yes Date on this admission: 07/12/19 Emergency Visit: Yes ED Registration Date: 07/03/19 Care time: The patient presented to the Emergency Department on the above date and was hospitalized for further evaluation of their emergent condition. Critical Care patient: No - Discharge Referral Referred to [facility] No
[2019-07-06] MEDS: TAMSULOSIN HCL 0.4 MG CAP PO SCH (09:28)
[2019-07-06] MEDS: LOSARTAN POTASSIUM 50 MG TABLET (FP) PO SCH (09:28)
[2019-07-06] MEDS: HEPARIN NA (PORCINE) 5,000 UNITS/ML 1ML VIAL SQ SCH (09:29)
== END 2019-07-06 10:46 | disposition home or self-care (01) | DRG 312 ==
LOC: JER 12:32 → JERBED 16:14 → J4W 20:39 → OBSVTOIN 22:16
PROVIDERS: ADMIT Internal Medicine; ATTEND Nurse Practitioner Family
DX: R55 Syncope and collapse (principal); I95.9 Hypotension, unspecified; R00.1 Bradycardia, unspecified; I10 Essential (primary) hypertension; N40.0 Benign prostatic hyperplasia without lower urinary tract symptoms; M54.5 Low back pain; R68.0 Hypothermia, not associated with low environmental temperature; D72.829 Elevated white blood cell count, unspecified
CPT/HCPCS: 36415; 71045-TC-FY; 80053; 81003; 82550; 82553; 83605; 84443; 84484; 85025; 85610; 85730; 87040; 87086; 93005; 93010; 93306-TC; 99285-25; G0378; J1644

== ENCOUNTER 2019-10-03 10:57 | Emergency (ER) | payer BC, OTHER ==
[2019-10-03 11:05] VITALS: TEMP 100.1; BMI 29.7
[2019-10-03] MEDS ORDERED: ACETAMINOPHEN 500 MG TABLET (FP) PO ONE (12:30)
--- NOTE | 2019-10-03 12:36 | PDOC ---
History of Present Illness - General Chief Complaint: Blood Pressure Problem Stated Complaint: Blood Pressure Problem Time Seen by Provider: 10/03/19 12:22 History Source: Patient Exam Limitations: No Limitations - History of Present Illness Initial Comments: 10/03/19 12:31 69y M with PMH of HTN, BPH, Chronic Back pain presenting to ED for headache and high blood pressure for 3 days. He says he was feeling congested earlier and had been drinking tea with lemon and does not have congestion anymore. He says he woke up with the headache and it has been constant for the past 3 days. He took Tylenol yesterday and says it helped a little. He states the bp at home has been as high as 170s systolic. Denies changes in vision, numbness/tingling, ataxia, weakness, chest pain, sob, fever, sick contacts, cough, neck stiffness, thunderclap headache, history of intracranial hemorrhage in the family, throat pain, abdominal pain, n/v/d, body aches/joint pains. He says he has been co mpliant with his meds. PMD: PMH: see hpi PSH: hernia repair Meds: losartan 50mg, Flomax Allergies: ASA Social: denies Past History - Past Medical History Allergies/Adverse Reactions: Allergies Allergy/AdvReac Type Severity Reaction Status Date / Time acetaminophen [From Percocet] Allergy Verified 10/03/19 11:05 aspirin Allergy Verified 10/03/19 11:05 codeine Allergy Verified 10/03/19 11:05 ibuprofen [From Advil] Allergy Verified 10/03/19 11:05 oxycodone HCl [From Percocet] Allergy Verified 10/03/19 11:05 Home Medications: Ambulatory Orders Tamsulosin HCl [Flomax -] 0.4 mg PO DAILY 01/06/16 Losartan Potassium [Cozaar -] 50 mg PO DAILY #90 tablet 07/06/19 COPD: No Disorders: Yes (BPH) HTN: Yes - Surgical History Abdominal Surgery: Yes (hernia) Orthopedic Surgery: Yes (knee and wrist surgery) - Psycho Social/Smoking Cessation Hx Smoking History: Never smoked Hx Alcohol Use: Yes Drug/Substance Use Hx: No Review of Systems - Review of Systems Constitutional: No: Chills, Fever, Weakness HEENTM: Yes: See HPI Respiratory: No: Cough, Shortness of Breath Cardiac (ROS): No: Chest Pain, Lightheadedness, Palpitations, Syncope ABD/GI: No: Symptoms Reported : No: Symptoms Reported Musculoskeletal: No: Joint Pain, Muscle Pain, Neck Pain Integumentary: No: Symptoms Reported Neurological: Yes: Headache. No: Numbness, Paresthesia, Tingling, Tremors, Weakness, Ataxia, Dizziness *Physical Exam - Vital Signs Last Vital Signs Temp Pulse Resp BP Pulse Ox 100.1 F H 89 18 181/102 H 99 10/03/19 11:02 10/03/19 11:02 10/03/19 11:02 10/03/19 11:02 10/03/19 11:02 - Physical Exam General Appearance: Yes: Nourished, Appropriately Dressed. No: Apparent Distress HEENT: positive: EOMI, DERECK, Nasal Congestion. negative: Sinus Tenderness Neck: positive: Trachea midline, Supple. negative: Lymphadenopathy (R), Lymphadenopathy (L) Respiratory/Chest: positive: Lungs Clear, Normal Breath Sounds. negative: Decreased Breath Sounds, Paradoxal Breathing, Crackles, Rales, Rhonchi, Stridor, Wheezing Cardiovascular: positive: Regular Rhythm, Regular Rate, S1, S2. negative: Edema, JVD, Murmur Gastrointestinal/Abdominal: positive: Normal Bowel Sounds, Soft. negative: Tender Musculoskeletal: negative: CVA Tenderness, Decreased Range of Motion, Muscle Spasm Extremity: positive: Normal Capillary Refill Integumentary: positive: Normal Color, Dry, Warm. 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 last dose of cozaar was this am 0730 pt is well appearing, ambulatory. low suspicion for meningitis (no meningeal signs, no ams) low suspicion for bleed (no thunderclap, 3 days of guevara with congestion and low grade fever) suspect sinusitis/congestion +/- COVID19. Low suspicion for HTN emergency; no neurological symptoms, no chest pain, no sob. does not require labs at this time. will treat with po Tylenol, give home dose of meds if bp still elevated. will dc home with Covid precautions and return precautions. 10/03/19 13:15 Discharge - Discharge Information Problems reviewed: Yes Clinical Impression/Diagnosis: Headache Qualifiers: Headache type: unspecified Headache chronicity pattern: acute headache In tractability: not intractable Qualified Code(s): R51 - Headache High blood pressure Qualifiers: Hypertension type: unspecified Qualified Code(s): I10 - Essential (primary) hypertension Disposition: HOME - Admission No - Follow up/Referral - Patient Discharge Instructions Patient Printed Discharge Instructions: DI for High Blood Pressure, DI for Headache, [facility]-Coronavirus Instructions Additional Instructions: Lo vieron hoy en la brannon de emergencias por dolor de bel y presin arterial catrina. [place] podra deberse a lakhwinder enfermedad viral, carmen el coronavirus. Le recomiendo que se quede en casa [place] 2 semanas, evite el contacto prolongado con alguien en oneill hogar. Si alguien vive con usted, elton debe quedarse en casa. Usar lakhwinder mscara. Mantente flako hidratado. Puede nir 650 mg de Tylenol cada 4 horas para el dolor de bel. Tambin puede nir Advil si es necesario. Contine tomando parveen medicamentos para la presin arterial segn las indicaciones. Elton recomiendo usar un aerosol nasal para ayudar con la congestin. Jeremiah lakhwinder trini con oneill mdico sobre esta visita al [place]. Regrese a la brannon de emergencias si tiene dificultad para respirar, tiene dolor en el pecho, si el dolor de bel contina empeorando a pesar del uso de medicamentos. John You were seen in the emergency room today for a headache and high blood pressure. This could be due to a viral illness, like Coronavirus. I recommend that you stay at home for 2 weeks, avoid prolonged contact with anyone at home. If anyone lives with you, they should also stay at home. Wear a mask. Keep yourself well hydrated. You can take 650mg Tylenol every 4 hours for the headache. You can also take Advil if needed. Continue taking your blood pressure medications as directed. I also recommend using a nasal spray to help with the congestion. Please make an appointment with your doctor about this ED visit. Come back to the ER if you have difficulty breathing, have chest pain, if the headache continues to get worse despite medication use. Thank you Print Language: VINCENTIAN - Post Discharge Activity
[2019-10-03] MEDS ORDERED: ACETAMINOPHEN 325 MG TABLET (FP) ONE (12:47)
[2019-10-03] MEDS ORDERED: LOSARTAN POTASSIUM 50 MG TABLET (FP) PO ONE (12:50)
[2019-10-03 13:09] VITALS: BP 183/109; PULSE 88
--- NOTE | 2019-10-03 13:10 | PDOC ---
Attending Attestation - Resident Resident Name: Chela Holden - ED Attending Attestation I have performed the following: I have examined & evaluated the patient, The case was reviewed & discussed with the resident, I agree w/resident's findings & plan, Exceptions are as noted - HPI HPI: 10/03/19 13:06 69 years old with past medical history significant for hypertension presents to the ED with 2-day history of gradual onset headache mild to moderate comes and goes alleviated by Tylenol denies fever chest pain shortness of breath nausea vomiting diarrhea malaise or body aches Well-appearing no apparent distress - Physicial Exam PE: 10/03/19 13:06 Vitals: Triage Vital signs reviewed General Appearance: No acute distress, well nourished well developed, Head: Atraumatic, Cardiac: Regular rate and rhythym, no murmurs, no rubs, no gallops, Lungs: Clear to auscultation bilateral, good air movement bilaterally, Abdomen: Soft, non distended, normal bowel sounds, non tender to palpation Extremities: Full range of motion to all extremities, no cyanosis, clubbing, or edema Skin: Warm and dry, no rashes or lesions, no rash, no petechiae Psych: Normal mood, normal affect - Medical Decision Making 10/03/19 13:09 Well-appearing no apparent distress neck is supple low suspicion for meningitis likely mild coded illness no indication for testing patient is stable to go home we will double up his antihypertensive medications advised Tylenol and return to ED for any severe worsening symptoms or for any concerns. Findings, the need for follow-up and strict return instructions discussed with patient. Discharge - Discharge Information Problems reviewed: Yes Clinical Impression/Diagnosis: Headache Qualifiers: Headache type: unspecified Headache chronicity pattern: acute headache Intractability: not intractable Qualified Code(s): R51 - Headache High blood pressure Qualifiers: Hypertension type: unspecified Qualified Code(s): I10 - Essential (primary) hypertension Disposition: HOME - Follow up/Referral - Patient Discharge Instructions Patient Printed Discharge Instructions: DI for High Blood Pressure, DI for Headache, [facility]-Coronavirus Instructions Additional Instructions: Lo vieron hoy en la brannon de emergencias por dolor de bel y presin arterial catrina. [place] podra deberse a lakhwinder enfermedad viral, carmen el coronavirus. Le recomiendo que se quede en casa [place] 2 semanas, evite el contacto prolongado con alguien en oneill hogar. Si alguien vive con usted, elton debe quedarse en casa. Usar lakhwinder mscara. Mantente flako hidratado. Puede nir 650 mg de Tylenol cada 4 horas para el dolor de bel. Tambin puede nir Advil si es necesario. Contine tomando parveen medicamentos para la presin arterial segn las indicaciones. Elton recomiendo usar un aerosol nasal para ayudar con la congestin. Jeremiah lakhwinder trini con oneill mdico sobre esta visita al [place]. Regrese a la brannon de emergencias si tiene dificultad para respirar, tiene dolor en el pecho, si el dolor de bel contina empeorando a pesar del uso de medicamentos. John You were seen in the emergency room today for a headache and high blood pressure. This could be due to a viral illness, like Coronavirus. I recommend that you stay at home for 2 weeks, avoid prolonged contact with anyone at home. If anyone lives with you, they should also stay at home. Wear a mask. Keep yourself well hydrated. You can take 650mg Tylenol every 4 hours for the headache. You can also take Advil if needed. Continue taking your blood pressure medications as directed. I also recommend using a nasal spray to help with the congestion. Please make an appointment with your doctor about this ED visit. Come back to the ER if you have difficulty breathing, have chest pain, if the headache continues to get worse despite medication use. Thank you Print Language: CHADIAN - Post Discharge Activity
[2019-10-03] MEDS ORDERED: LOSARTAN POTASSIUM 50 MG TABLET (FP) ONE (13:18)
== END 2019-10-03 13:31 | disposition home or self-care (01) ==
LOC: JER 10:57
DX: R51 Headache (principal); I10 Essential (primary) hypertension; J34.89 Other specified disorders of nose and nasal sinuses; N40.0 Benign prostatic hyperplasia without lower urinary tract symptoms; M54.89 Other dorsalgia; G89.29 Other chronic pain; Z88.5 Allergy status to narcotic agent; Z88.6 Allergy status to analgesic agent
CPT/HCPCS: 99283-25

== ENCOUNTER 2022-09-19 16:37 | Emergency (ER) | payer OTHER ==
[2022-09-19 17:01] VITALS: RESP 18; TEMP 98.1; BMI 29.7
[2022-09-19] MEDS ORDERED: LIDOCAINE 5% TOPICAL PATCH TP ONE (17:44)
[2022-09-19] MEDS ORDERED: ACETAMINOPHEN 325 MG TABLET (FP) PO ONE (17:44)
[2022-09-19] MEDS ORDERED: ACETAMINOPHEN 325 MG TABLET (FP) ONE (18:43)
[2022-09-19] MEDS ORDERED: LIDOCAINE 5% TOPICAL PATCH ONE (18:43)
[2022-09-19 19:16] LABS: URINE APPEARANCE CLEAR; URINE BILIRUBIN NEGATIVE (NEGATIVE); URINE COLOR DK YELLOW; URINE GLUCOSE (UA) NEGATIVE (NEGATIVE); URINE KETONE TRACE (NEGATIVE); URINE LEUK ESTERASE NEGATIVE (NEGATIVE); URINE NITRITE NEGATIVE (NEGATIVE); URINE PROTEIN TRACE (NEGATIVE)
[2022-09-19] MEDS ORDERED: LIDOCAINE PATCH REMOVAL MC SCH (22:00)
[2022-09-19 22:24] VITALS: BP 132/72; PULSE 70
== END 2022-09-19 22:24 | disposition home or self-care (01) ==
LOC: JER 16:37
DX: M54.2 Cervicalgia (principal); M54.50 Low back pain, unspecified; W17.89XA Other fall from one level to another, initial encounter; Y92.009 Unspecified place in unspecified non-institutional (private) residence as the place of occurrence of the external cause
CPT/HCPCS: 70450-TC; 72125-TC; 72131-TC; 81003; 99284-25